=== PATIENT | female | born 1965 | race Caucasian/White ===

== ENCOUNTER → 2016-03-31 | Outpatient (CLI) | payer MEDICARE ==
[~2016-03-31] MED LIST: AMBIEN10 MG PO; FLUOXETINE HYDR20 M2 PO; IRON325 MG PO; KLONOPIN 1MG1 M1 PO; OLANZAPINE5 M2 PO; SYNTHROID175 MCG PO; TYLENOL WITH CO1 TA1 PO; VITAMIN D350000 UNIT PO
== END ==
LOC: LAB 15:47
DX: R11.11 Vomiting without nausea (principal); G43.009 Migraine without aura, not intractable, without status migrainosus

== ENCOUNTER → 2016-10-23 | Outpatient (CLI) | payer MEDICARE ==
[2014-11-29 10:54] VITALS: BP 120/78
== END ==
LOC: LAB 10:31
DX: Z00.00 Encounter for general adult medical examination without abnormal findings (principal)

== ENCOUNTER → 2017-04-26 | Outpatient (CLI) | payer MEDICARE ==
[2014-11-29 10:54] VITALS: BP 120/78
[2017-04-26 12:35] LABS: EOS # 0.1 (0.04-0.40); HEMATOCRIT 46.4 % (37.0-47.0); HEMOGLOBIN 14.1 g/dL (12.5-16.0); LYMPH# 1.5 (1.50-4.00); MEAN CELL VOLUME 83 fl (78-100); MEAN CORPUSCULAR HEMOGLOBIN 25 pg (27-31); MEAN CORPUSCULAR HGB CONC 30 g/dL (33-37); MEAN PLATELET VOLUME 10.4 fl (7.4-10.4); MONO # 0.8 (0.20-0.80); NEU # 5.7 (1.40-6.50); PLATELET COUNT 329 K/mm3 (130-400); RED BLOOD COUNT 5.59 M/mm3 (4.10-5.30); RED CELL DISTRIBUTION WIDTH 15.6 % (11.5-14.5)
[2017-04-26 13:02] LABS: ALBUMIN 4.5 g/dL (3.5-5.0); BUN/CREATININE RATIO 13.4 (6.0-26.0); CALCIUM 10.1 mg/dL (8.4-10.2); POTASSIUM 4.8 mmol/L (3.6-5.0); TOTAL BILIRUBIN 0.5 mg/dL (0.2-1.3); TOTAL PROTEIN 7.8 g/dL (6.3-8.2)
[2017-04-26 14:40] LABS: ERYTHROCYTE SEDIMENTATION RATE 12 mm/hr (0-30)
[2017-04-27 04:55] LABS: T3 TOTAL 85 ng/dL (87-178)
== END ==
LOC: LAB 12:18
PROVIDERS: Internal Medicine
DX: E03.8 Other specified hypothyroidism (principal); K90.9 Intestinal malabsorption, unspecified; E53.8 Deficiency of other specified B group vitamins; F10.10 Alcohol abuse, uncomplicated

== ENCOUNTER → 2017-10-20 | Outpatient (CLI) | payer MEDICARE ==
[2017-08-25 16:33] VITALS: BP 130/96
[2017-10-20 10:43] LABS: URINE WBC 0 /hpf (0-3)
[2017-10-20 11:08] LABS: URINE APPEARANCE HAZY; URINE BILIRUBIN NEGATIVE (NEGATIVE); URINE COLOR YELLOW; URINE KETONE NEGATIVE (NEGATIVE); URINE NITRATE NEGATIVE (NEGATIVE); URINE PROTEIN(semi-quant) TRACE mg/dL (NEGATIVE); URINE UROBILINOGEN NORMAL (NORMAL)
[2017-10-20 11:09] LABS: URINE BLOOD TRACE (NEGATIVE); URINE GLUCOSE NEGATIVE (NEGATIVE); URINE LEUKOCYTE ESTERASE NEGATIVE (NEGATIVE)
== END ==
LOC: LAB 10:37
PROVIDERS: Internal Medicine
DX: N39.0 Urinary tract infection, site not specified (principal)

== ENCOUNTER 2018-02-23 10:04 | Emergency (ER) | payer MEDICARE ==
[~2018-02-23 10:04] MED LIST changes: +FLUOXETINE HCL10 MG PO; -FLUOXETINE HYDR20 M2 PO
[2018-02-23] MEDS ORDERED: OLANZAPINE5 M3 PO (10:14)
[2018-02-23] MEDS ORDERED: NORCO 325 MG-7.1 TA1 PO (10:17)
[2018-02-23 10:55] LABS: EOS # 0.1 (0.04-0.40); HEMATOCRIT 44.6 % (37.0-47.0); LYMPH# 1.4 (1.50-4.00); MEAN CELL VOLUME 85 fl (78-100); MEAN CORPUSCULAR HEMOGLOBIN 27 pg (27-31); MEAN CORPUSCULAR HGB CONC 31 g/dL (33-37); MEAN PLATELET VOLUME 10.8 fl (7.4-10.4); MONO # 0.9 (0.20-0.80); NEU # 8.4 (1.40-6.50); PLATELET COUNT 296 K/mm3 (130-400); RED BLOOD COUNT 5.22 M/mm3 (4.10-5.30); RED CELL DISTRIBUTION WIDTH 15.3 % (11.5-14.5); WHITE BLOOD COUNT 10.8 K/mm3 (4.8-10.8)
[2018-02-23 11:13] LABS: CALCIUM 9.8 mg/dL (8.4-10.2); POTASSIUM 4.1 mmol/L (3.6-5.0); TOTAL BILIRUBIN 0.7 mg/dL (0.2-1.3)
[2018-02-23 11:23] LABS: URINE APPEARANCE CLOUDY; URINE BILIRUBIN NEGATIVE (NEGATIVE); URINE BLOOD NEGATIVE (NEGATIVE); URINE COLOR YELLOW; URINE GLUCOSE NEGATIVE (NEGATIVE); URINE KETONE NEGATIVE (NEGATIVE); URINE LEUKOCYTE ESTERASE TRACE (NEGATIVE); URINE NITRATE POSITIVE (NEGATIVE); URINE PROTEIN(semi-quant) TRACE mg/dL (NEGATIVE); URINE UROBILINOGEN NORMAL (NORMAL)
[2018-02-23 11:24] LABS: URINE MUCUS PRESENT (NOT PRESENT)
[2018-02-23 13:04] VITALS: BP 155/97
[2018-02-23] MEDS ORDERED: BACTRIM DS TAB1 EACH PO (13:04)
[2018-02-23] MEDS ORDERED: ZOFRAN ODT4 MG PO (13:04)
== END 2018-02-23 13:11 | disposition home or self-care (01) ==
LOC: ED 10:04
PROVIDERS: Physician Assistant
DX: E86.0 Dehydration (principal); K52.9 Noninfective gastroenteritis and colitis, unspecified; N39.0 Urinary tract infection, site not specified; M62.830 Muscle spasm of back; F17.210 Nicotine dependence, cigarettes, uncomplicated; Z79.899 Other long term (current) drug therapy; F41.9 Anxiety disorder, unspecified; E03.9 Hypothyroidism, unspecified
CPT/HCPCS: J1885; J2360; J2405; J7030

== ENCOUNTER → 2018-03-10 | Outpatient (CLI) | payer MEDICARE ==
[2018-02-23 13:04] VITALS: BP 155/97
[~2018-03-10] MED LIST changes: +BACTRIM DS TAB1 EACH PO; +NORCO 325 MG-7.1 TA1 PO; +OLANZAPINE5 M3 PO; +ZOFRAN ODT4 MG PO
[2018-03-10 10:22] LABS: BASO # 0.1 (0.02-0.10); EOS # 0.3 (0.04-0.40); EOS % 3.7 % (1.0-5.0); HEMATOCRIT 41.3 % (37.0-47.0); HEMOGLOBIN 12.6 g/dL (12.5-16.0); LYMPH# 1.8 (1.50-4.00); MEAN CELL VOLUME 90 fl (78-100); MEAN CORPUSCULAR HEMOGLOBIN 27 pg (27-31); MEAN CORPUSCULAR HGB CONC 31 g/dL (33-37); MEAN PLATELET VOLUME 9.8 fl (7.4-10.4); MONO # 0.8 (0.20-0.80); NEU # 5.4 (1.40-6.50); PLATELET COUNT 286 K/mm3 (130-400); RED BLOOD COUNT 4.61 M/mm3 (4.10-5.30); RED CELL DISTRIBUTION WIDTH 16.3 % (11.5-14.5); WHITE BLOOD COUNT 8.3 K/mm3 (4.8-10.8)
[2018-03-10 10:30] LABS: ALBUMIN 4.5 g/dL (3.5-5.0); CALCIUM 9.2 mg/dL (8.4-10.2); POTASSIUM 4.3 mmol/L (3.6-5.0); TOTAL BILIRUBIN 0.4 mg/dL (0.2-1.3); TOTAL PROTEIN 7.3 g/dL (6.3-8.2)
[2018-03-11 02:37] LABS: T3 TOTAL 62 ng/dL (87-178)
== END ==
LOC: LAB 10:05
PROVIDERS: Internal Medicine
DX: Z12.11 Encounter for screening for malignant neoplasm of colon (principal); E78.2 Mixed hyperlipidemia; E03.8 Other specified hypothyroidism; K90.9 Intestinal malabsorption, unspecified; R56.9 Unspecified convulsions; E53.8 Deficiency of other specified B group vitamins

== ENCOUNTER → 2018-08-11 | Outpatient (CLI) | payer MEDICARE, MEDICAID | LOC: RAD 10:36 | DX: M17.12 Unilateral primary osteoarthritis, left knee (principal) ==

== ENCOUNTER → 2018-09-21 | Outpatient (CLI) | payer MEDICARE | LOC: RAD 08:26 | DX: M48.061 Spinal stenosis, lumbar region without neurogenic claudication (principal); M51.16 Intervertebral disc disorders with radiculopathy, lumbar region; M46.87 Other specified inflammatory spondylopathies, lumbosacral region; R41.3 Other amnesia | CPT/HCPCS: A9585 ==

== ENCOUNTER → 2019-12-15 | Outpatient (CLI) | payer MEDICARE | LOC: LAB 09:21 | DX: J02.9 Acute pharyngitis, unspecified (principal); J34.89 Other specified disorders of nose and nasal sinuses; R53.83 Other fatigue; R06.02 Shortness of breath; Z20.828 Contact with and (suspected) exposure to other viral communicable diseases ==

== ENCOUNTER → 2019-12-29 | Outpatient (CLI) | payer MEDICARE ==
[2019-12-29 14:56] LABS: BASO # 0.1 (0.02-0.10); EOS # 0.4 (0.04-0.40); EOS % 3.5 % (1.0-5.0); HEMATOCRIT 43.2 % (37.0-47.0); HEMOGLOBIN 12.9 g/dL (12.5-16.0); LYMPH# 3.9 (1.50-4.00); MEAN CELL VOLUME 85 fl (78-100); MEAN CORPUSCULAR HEMOGLOBIN 25 pg (27-31); MEAN CORPUSCULAR HGB CONC 30 g/dL (33-37); MEAN PLATELET VOLUME 10.3 fl (7.4-10.4); MONO # 0.7 (0.20-0.80); NEU # 5.8 (1.40-6.50); PLATELET COUNT 288 K/mm3 (130-400); RED BLOOD COUNT 5.11 M/mm3 (4.10-5.30); RED CELL DISTRIBUTION WIDTH 16.4 % (11.5-14.5); WHITE BLOOD COUNT 10.9 K/mm3 (4.8-10.8)
[2019-12-29 15:01] LABS: ALBUMIN 4.4 g/dL (3.5-5.0)
[2019-12-29 15:02] LABS: PROTHROMBIN TIME 9.5 SECONDS (9.0-12.0)
[2019-12-29 15:03] LABS: CALCIUM 9.4 mg/dL (8.3-10.5)
[2019-12-29 15:04] LABS: TOTAL PROTEIN 7.2 g/dL (6.4-8.3)
[2019-12-29 15:06] LABS: TOTAL BILIRUBIN 0.5 mg/dL (0.2-1.2)
[2019-12-29 15:07] LABS: URINE APPEARANCE CLEAR; URINE BILIRUBIN NEGATIVE (NEGATIVE); URINE BLOOD NEGATIVE (NEGATIVE); URINE COLOR YELLOW; URINE GLUCOSE NEGATIVE (NEGATIVE); URINE KETONE NEGATIVE (NEGATIVE); URINE LEUKOCYTE ESTERASE NEGATIVE (NEGATIVE); URINE NITRATE NEGATIVE (NEGATIVE); URINE PROTEIN(semi-quant) TRACE mg/dL (NEGATIVE); URINE UROBILINOGEN NORMAL (NORMAL)
[2019-12-29 15:10] LABS: MAGNESIUM 2.18 mg/dL (1.60-2.60)
== END ==
LOC: LAB 14:36
PROVIDERS: Internal Medicine
DX: Z01.818 Encounter for other preprocedural examination (principal); Z51.81 Encounter for therapeutic drug level monitoring; E03.8 Other specified hypothyroidism; K90.9 Intestinal malabsorption, unspecified; M17.10 Unilateral primary osteoarthritis, unspecified knee

== ENCOUNTER 2020-05-16 14:08 | Emergency (ER) | payer MEDICARE ==
[2020-05-16 14:44] LABS: BASO # 0.1 (0.02-0.10); EOS # 0.3 (0.04-0.40); HEMATOCRIT 40.7 % (37.0-47.0); HEMOGLOBIN 12.2 g/dL (12.5-16.0); LYMPH# 3.6 (1.50-4.00); MEAN CELL VOLUME 84 fl (78-100); MEAN CORPUSCULAR HEMOGLOBIN 25 pg (27-31); MEAN CORPUSCULAR HGB CONC 30 g/dL (33-37); MEAN PLATELET VOLUME 11.3 fl (7.4-10.4); MONO # 0.8 (0.20-0.80); NEU # 4.1 (1.40-6.50); PLATELET COUNT 260 K/mm3 (130-400); RED BLOOD COUNT 4.87 M/mm3 (4.10-5.30); RED CELL DISTRIBUTION WIDTH 14.8 % (11.5-14.5); WHITE BLOOD COUNT 8.8 K/mm3 (4.8-10.8)
[2020-05-16 14:51] LABS: ALBUMIN 4.3 g/dL (3.5-5.0); POTASSIUM 3.6 mmol/L (3.5-5.1)
[2020-05-16 14:52] LABS: CALCIUM 9.5 mg/dL (8.3-10.5)
[2020-05-16 14:53] LABS: TOTAL PROTEIN 7.1 g/dL (6.4-8.3)
[2020-05-16 14:55] LABS: TOTAL BILIRUBIN 0.5 mg/dL (0.2-1.2)
[2020-05-16 20:52] VITALS: BP 115/70
== END 2020-05-16 20:52 | disposition short-term general hospital (02) ==
LOC: ED 14:08 → MED/SURG 17:18 → ED 17:18
PROVIDERS: Nurse Practitioner
DX: R56.9 Unspecified convulsions (principal); F11.10 Opioid abuse, uncomplicated; R00.1 Bradycardia, unspecified; F31.9 Bipolar disorder, unspecified; F17.200 Nicotine dependence, unspecified, uncomplicated; Z79.890 Hormone replacement therapy
CPT/HCPCS: J2310

== ENCOUNTER → 2020-07-01 | Outpatient (CLI) | payer MEDICARE ==
[2020-07-01 12:31] LABS: EOS # 0.1 (0.04-0.40); EOS % 0.8 % (1.0-5.0); HEMATOCRIT 42.4 % (37.0-47.0); HEMOGLOBIN 12.6 g/dL (12.5-16.0); MEAN CELL VOLUME 84 fl (78-100); MEAN CORPUSCULAR HEMOGLOBIN 25 pg (27-31); MEAN CORPUSCULAR HGB CONC 30 g/dL (33-37); MEAN PLATELET VOLUME 10.6 fl (7.4-10.4); MONO # 0.7 (0.20-0.80); NEU # 5.7 (1.40-6.50); PLATELET COUNT 298 K/mm3 (130-400); RED BLOOD COUNT 5.08 M/mm3 (4.10-5.30); RED CELL DISTRIBUTION WIDTH 14.6 % (11.5-14.5); WHITE BLOOD COUNT 8.5 K/mm3 (4.8-10.8)
[2020-07-01 12:40] LABS: ALBUMIN 4.5 g/dL (3.5-5.0); POTASSIUM 4.4 mmol/L (3.5-5.1)
[2020-07-01 12:41] LABS: CALCIUM 9.5 mg/dL (8.3-10.5)
[2020-07-01 12:43] LABS: TOTAL PROTEIN 7.4 g/dL (6.4-8.3)
[2020-07-01 12:44] LABS: TOTAL BILIRUBIN 0.2 mg/dL (0.2-1.2)
== END ==
LOC: LAB 12:18
PROVIDERS: Internal Medicine
DX: E03.8 Other specified hypothyroidism (principal); R00.1 Bradycardia, unspecified

== ENCOUNTER → 2020-08-09 | Outpatient (CLI) | payer MEDICARE | LOC: CARDLAB 08:49 | DX: R00.1 Bradycardia, unspecified (principal) | CPT/HCPCS: A9500 ==

== ENCOUNTER 2021-05-09 10:26 | Emergency (ER) | payer MEDICARE ==
[2021-05-09] MEDS ORDERED: SUMATRIPTAN SU100 MG PO (10:38)
[2021-05-09] MEDS ORDERED: NEURONTIN300 MG/CAP (10:39)
[2021-05-09] MEDS ORDERED: ACETAMINOPHEN-H1 TA1 PO (10:39)
[2021-05-09 11:50] LABS: BASO # 0.02 K/mm3 (0.02-0.10); EOS # 0.15 K/mm3 (0.04-0.40); EOS % 2.2 % (1.0-5.0); HEMOGLOBIN 12.7 g/dL (12.5-16.0); LYMPH# 2.76 K/mm3 (1.50-4.00); MEAN CELL VOLUME 84 fl (78-100); MEAN CORPUSCULAR HEMOGLOBIN 26 pg (27-31); MEAN CORPUSCULAR HGB CONC 30 g/dL (33-37); MEAN PLATELET VOLUME 10.8 fl (7.4-10.4); MONO # 0.69 K/mm3 (0.20-0.80); NEU # 3.23 K/mm3 (1.40-6.50); PLATELET COUNT 189 K/mm3 (130-400); RED BLOOD COUNT 4.99 M/mm3 (4.10-5.30); RED CELL DISTRIBUTION WIDTH 14.4 % (11.5-14.5); WHITE BLOOD COUNT 6.9 K/mm3 (4.8-10.8)
[2021-05-09 12:06] LABS: POTASSIUM 4.5 mmol/L (3.5-5.1)
[2021-05-09 12:07] LABS: CALCIUM 8.9 mg/dL (8.3-10.5)
[2021-05-09 12:08] LABS: TOTAL PROTEIN 6.6 g/dL (6.4-8.3)
[2021-05-09 12:10] LABS: TOTAL BILIRUBIN 0.2 mg/dL (0.2-1.2)
[2021-05-09 14:41] LABS: URINE COLOR YELLOW
[2021-05-09 14:42] LABS: URINE APPEARANCE HAZY; URINE BILIRUBIN NEGATIVE (NEGATIVE); URINE BLOOD NEGATIVE (NEGATIVE); URINE GLUCOSE NEGATIVE (NEGATIVE); URINE KETONE NEGATIVE (NEGATIVE); URINE LEUKOCYTE ESTERASE TRACE (NEGATIVE); URINE MUCUS PRESENT (NOT PRESENT); URINE NITRATE NEGATIVE (NEGATIVE); URINE PROTEIN(semi-quant) TRACE (NEGATIVE); URINE UROBILINOGEN NORMAL (NORMAL)
[2021-05-09 15:24] VITALS: BP 116/72
== END 2021-05-09 15:26 | disposition home or self-care (01) ==
LOC: ED 10:26
PROVIDERS: Nurse Practitioner
DX: R05.1 Acute cough (principal)
CPT/HCPCS: J0780; J1885

== ENCOUNTER → 2021-05-22 | Outpatient (CLI) | payer MEDICARE ==
[~2021-05-22] MED LIST changes: +ACETAMINOPHEN-H1 TA1 PO; +NEURONTIN300 MG/CAP; +SUMATRIPTAN SU100 MG PO
[2021-05-22 11:44] LABS: BASO # 0.06 K/mm3 (0.02-0.10); EOS # 0.15 K/mm3 (0.04-0.40); EOS % 1.4 % (1.0-5.0); HEMATOCRIT 41.8 % (37.0-47.0); HEMOGLOBIN 12.7 g/dL (12.5-16.0); MEAN CELL VOLUME 84 fl (78-100); MEAN CORPUSCULAR HEMOGLOBIN 26 pg (27-31); MEAN CORPUSCULAR HGB CONC 30 g/dL (33-37); MEAN PLATELET VOLUME 10.6 fl (7.4-10.4); MONO # 0.77 K/mm3 (0.20-0.80); NEU # 6.53 K/mm3 (1.40-6.50); PLATELET COUNT 275 K/mm3 (130-400); RED BLOOD COUNT 4.97 M/mm3 (4.10-5.30); RED CELL DISTRIBUTION WIDTH 13.7 % (11.5-14.5); WHITE BLOOD COUNT 10.4 K/mm3 (4.8-10.8)
[2021-05-22 12:13] LABS: ALBUMIN 4.3 g/dL (3.5-5.0); POTASSIUM 4.2 mmol/L (3.5-5.1)
[2021-05-22 12:14] LABS: CALCIUM 9.9 mg/dL (8.3-10.5)
[2021-05-22 12:16] LABS: TOTAL PROTEIN 7.3 g/dL (6.4-8.3)
[2021-05-22 12:18] LABS: TOTAL BILIRUBIN 0.3 mg/dL (0.2-1.2)
[2021-05-22 14:02] LABS: ERYTHROCYTE SEDIMENTATION RATE 21 mm/hr (0-30)
[2021-05-22 14:21] LABS: D-DIMER 0.65 mg/L FEU (0.15-0.50)
== END ==
LOC: LAB 11:24
PROVIDERS: Internal Medicine
DX: R06.00 Dyspnea, unspecified (principal)

== ENCOUNTER → 2021-06-02 | Outpatient (CLI) | payer MEDICARE | LOC: LAB 10:26 → RAD 10:26 | DX: F44.5 Conversion disorder with seizures or convulsions (principal); G89.29 Other chronic pain; E03.8 Other specified hypothyroidism; F10.10 Alcohol abuse, uncomplicated; G43.009 Migraine without aura, not intractable, without status migrainosus; E78.2 Mixed hyperlipidemia; R00.1 Bradycardia, unspecified; R09.02 Hypoxemia; R06.00 Dyspnea, unspecified | CPT/HCPCS: Q9967 ==

== ENCOUNTER → 2021-07-21 | Outpatient (CLI) | payer MEDICARE | LOC: LAB 09:19 | DX: Z12.39 Encounter for other screening for malignant neoplasm of breast (principal); R55 Syncope and collapse; E03.8 Other specified hypothyroidism; R06.00 Dyspnea, unspecified ==

== ENCOUNTER → 2021-12-15 | Outpatient (CLI) | payer MEDICARE | LOC: MAMMO 11:25 | DX: Z12.31 Encounter for screening mammogram for malignant neoplasm of breast (principal); N64.4 Mastodynia ==

== ENCOUNTER → 2022-05-12 | Outpatient (CLI) | payer MEDICARE | LOC: LAB 09:59 | DX: Z12.31 Encounter for screening mammogram for malignant neoplasm of breast (principal); E03.8 Other specified hypothyroidism; R55 Syncope and collapse; R06.00 Dyspnea, unspecified; M46.96 Unspecified inflammatory spondylopathy, lumbar region; M54.31 Sciatica, right side ==

== ENCOUNTER → 2022-06-09 | Outpatient (CLI) | payer MEDICARE ==
[2022-06-09 10:26] LABS: BASO # 0.05 K/mm3 (0.02-0.10); EOS # 0.16 K/mm3 (0.04-0.40); EOS % 1.6 % (1.0-5.0); HEMATOCRIT 40.4 % (37.0-47.0); HEMOGLOBIN 12.2 g/dL (12.5-16.0); LYMPH# 2.78 K/mm3 (1.50-4.00); MEAN CELL VOLUME 91 fl (78-100); MEAN CORPUSCULAR HEMOGLOBIN 28 pg (27-31); MEAN CORPUSCULAR HGB CONC 30 g/dL (33-37); MONO # 0.87 K/mm3 (0.20-0.80); NEU # 6.11 K/mm3 (1.40-6.50); PLATELET COUNT 285 K/mm3 (130-400); RED BLOOD COUNT 4.43 M/mm3 (4.10-5.30); RED CELL DISTRIBUTION WIDTH 16.8 % (11.5-14.5)
[2022-06-09 12:27] LABS: ERYTHROCYTE SEDIMENTATION RATE 2 mm/hr (0-30)
[2022-06-10 13:05] LABS: ANA SCREEN with REFLEX Negative (Negative)
[2022-06-11 00:16] LABS: ANTI-CYC CITRULLINATED PEPT AB <20.0 CU (0.0-19.9)
== END ==
LOC: RAD 09:57
PROVIDERS: Internal Medicine
DX: Z12.39 Encounter for other screening for malignant neoplasm of breast (principal); M18.12 Unilateral primary osteoarthritis of first carpometacarpal joint, left hand; M54.31 Sciatica, right side; R55 Syncope and collapse; R06.00 Dyspnea, unspecified; E03.8 Other specified hypothyroidism; M46.96 Unspecified inflammatory spondylopathy, lumbar region; M65.4 Radial styloid tenosynovitis [de Quervain]; M25.532 Pain in left wrist

== ENCOUNTER → 2023-01-11 | Outpatient (CLI) | payer MEDICARE ==
[2023-01-11 12:18] LABS: ALBUMIN 4.5 g/dL (3.5-5.0); POTASSIUM 4.3 mmol/L (3.5-5.1)
[2023-01-11 12:19] LABS: BASO # 0.02 K/mm3 (0.02-0.10); CALCIUM 10.1 mg/dL (8.3-10.5); EOS # 0.04 K/mm3 (0.04-0.40); EOS % 0.5 % (1.0-5.0); HEMATOCRIT 49.7 % (37.0-47.0); HEMOGLOBIN 15.1 g/dL (12.5-16.0); LYMPH# 1.75 K/mm3 (1.50-4.00); MEAN CELL VOLUME 90 fl (78-100); MEAN CORPUSCULAR HEMOGLOBIN 27 pg (27-31); MEAN CORPUSCULAR HGB CONC 30 g/dL (33-37); MEAN PLATELET VOLUME 10.3 fl (7.4-10.4); MONO # 0.79 K/mm3 (0.20-0.80); NEU # 6.08 K/mm3 (1.40-6.50); PLATELET COUNT 284 K/mm3 (130-400); RED BLOOD COUNT 5.51 M/mm3 (4.10-5.30); RED CELL DISTRIBUTION WIDTH 15.7 % (11.5-14.5); WHITE BLOOD COUNT 8.7 K/mm3 (4.8-10.8)
[2023-01-11 12:21] LABS: TOTAL PROTEIN 7.1 g/dL (6.4-8.3)
[2023-01-11 13:33] LABS: TOTAL BILIRUBIN 0.6 mg/dL (0.2-1.2)
[2023-01-11 14:30] LABS: ERYTHROCYTE SEDIMENTATION RATE 2 mm/hr (0-30)
[2023-01-11 22:21] LABS: T3 FREE 1.8 pg/mL (1.7-3.7)
== END ==
LOC: LAB 11:04
PROVIDERS: Internal Medicine
DX: Z12.31 Encounter for screening mammogram for malignant neoplasm of breast (principal); Z20.822 Contact with and (suspected) exposure to COVID-19; R55 Syncope and collapse; M46.89 Other specified inflammatory spondylopathies, multiple sites in spine; M54.31 Sciatica, right side; R11.2 Nausea with vomiting, unspecified; M67.432 Ganglion, left wrist; F44.5 Conversion disorder with seizures or convulsions; G89.29 Other chronic pain; K90.9 Intestinal malabsorption, unspecified; E53.8 Deficiency of other specified B group vitamins; E78.2 Mixed hyperlipidemia; Z71.89 Other specified counseling; J02.9 Acute pharyngitis, unspecified

== ENCOUNTER → 2023-04-29 | Outpatient (CLI) | payer MEDICARE ==
[2023-04-29 11:33] LABS: URINE APPEARANCE SLIGHTLY CLOUDY (CLEAR); URINE COLOR YELLOW (YELLOW)
[2023-04-29 11:34] LABS: PH-URINE 5.5 (5.0 - 8.0); URINE BILIRUBIN 1+ (NEGATIVE); URINE BLOOD TRACE (NEGATIVE); URINE GLUCOSE TRACE (NEGATIVE); URINE KETONE NEGATIVE (NEGATIVE); URINE LEUKOCYTE ESTERASE NEGATIVE (NEGATIVE); URINE MUCUS PRESENT (NOT PRESENT); URINE NITRATE NEGATIVE (NEGATIVE); URINE PROTEIN(semi-quant) NEGATIVE (NEGATIVE)
== END ==
LOC: LAB 10:27
PROVIDERS: Internal Medicine
DX: R32 Unspecified urinary incontinence (principal)

== ENCOUNTER → 2024-01-11 | Outpatient (CLI) | payer MEDICARE | LOC: RAD 11:02 | DX: M20.5X1 Other deformities of toe(s) (acquired), right foot (principal); M19.071 Primary osteoarthritis, right ankle and foot ==

== ENCOUNTER → 2024-01-26 | Outpatient (CLI) | payer MEDICARE ==
[~2024-01-26] MED LIST changes: +AMPHETA/DEXTRO PO; +CYANOCOBALAM IM; +DONEPEZIL HCL10 MG PO; +EUTHYROX200 MCG; +EUTHYROX200 MCG PO; +KLONOPIN 1MG1 MG PO; +MELOXICAM7.5 MG PO; +NATURAL IRON65 MG PO; -NEURONTIN300 MG/CAP; +NEURONTIN300 MG/CAP PO; +REMERON15 MG PO; +TOPIRAMATE50 MG PO
== END ==
LOC: MAMMO 09:00
DX: Z12.31 Encounter for screening mammogram for malignant neoplasm of breast (principal)

== ENCOUNTER → 2024-02-22 | Outpatient (CLI) | payer MEDICARE ==
[2024-02-22 10:25] LABS: PH-URINE 5.5 (5.0 - 8.0); URINE APPEARANCE CLEAR (CLEAR); URINE BILIRUBIN NEGATIVE (NEGATIVE); URINE BLOOD NEGATIVE (NEGATIVE); URINE COLOR YELLOW (YELLOW); URINE GLUCOSE NEGATIVE (NEGATIVE); URINE KETONE NEGATIVE (NEGATIVE); URINE LEUKOCYTE ESTERASE NEGATIVE (NEGATIVE); URINE NITRATE POSITIVE (NEGATIVE); URINE PROTEIN(semi-quant) NEGATIVE (NEGATIVE); URINE WBC 0-1 /hpf (0-3)
[2024-02-22 10:26] LABS: URINE MUCUS PRESENT (NOT PRESENT)
[2024-02-22 22:35] LABS: CREATININE OTHER SOURCE 68 mg/dL (63-166)
[2024-02-22 23:13] LABS: T3 FREE 2.6 pg/mL (1.7-3.7)
== END ==
LOC: LAB 09:54
PROVIDERS: Internal Medicine
DX: E78.2 Mixed hyperlipidemia (principal); E03.8 Other specified hypothyroidism; K90.9 Intestinal malabsorption, unspecified; R73.03 Prediabetes